=== PATIENT | female | born 1980 | race American Indian/Alaskan Native ===

== ENCOUNTER 2020-06-14 06:55 | Emergency (ER) | payer SELFPAY ==
[2020-06-14] MEDS ORDERED: HYOSCYAMINE SUBL 0.125 MG TAB SL ONE (07:45)
[2020-06-14] MEDS ORDERED: FAMOTIDINE 20 MG/2 ML INJ IV ONE (07:45)
[2020-06-14] MEDS ORDERED: ONDANSETRON 4 MG/2 ML INJ IV ONE (07:48)
[2020-06-14] MEDS ORDERED: SUCRALFATE 1 GM/10 ML ORAL LIQD PO ONE (07:49)
[2020-06-14] MEDS ORDERED: MORPHINE 4 MG/1 ML INJ IV ONE (07:50)
--- NOTE | 2020-06-14 07:51 | Emergency Department Report ---
ED Abdominal Pain HPI - General Chief Complaint: Abdominal Pain Stated Complaint: STOMACH PAIN/NAUSEA Source: patient Mode of arrival: Ambulatory Limitations: No Limitations - History of Present Illness Initial Comments: 40-year-old -[place] female presents to the emergency room complaining of epigastric pain with nausea vomiting that is worse this morning. Patient sta chay it is her reflux. She states her Protonix is no longer working. She is having nausea and vomiting. Take Zofran couple hours prior to arrival. She denies smoking marijuana. In review of patient's chart I see that she has had a hysterectomy gastric bypass and neck surgery. Medical history is reflux in her area. She does have a history of hypertension. Denies any vomiting up blood. Patient reports that she last saw Dr. Kenia Contreras from [facility] in March and was told that she has severe acid reflux and a hiatal hernia and informed her that surgery is probably her most likely resolution of this problem. Patient states she has been taking Carafate, Nexium without much relief. Patient states even drinking water makes her stomach hurt. MD Complaint: abdominal pain -: This morning Location: epigastric Radiation: none Migration to: no migration Severity scale (0 -10): 10 Quality: sharp, burning Consistency: constant Improves With: nothing Worsens With: eating Associated Symptoms: nausea, vomiting - Related Data Previous Rx's Medication Instructions Recorded Last Taken Type Dicyclomine [Bentyl] 10 mg PO QID #20 capsule 06/14/20 Unknown Rx Hyoscyamine Subl [Levsin Sl 0.125 0.125 mg SL Q6HR PRN #20 tab 06/14/20 Unknown Rx TAB] Nitrofurantoin [place]/M-Cryst 100 mg PO Q12HR 10 Days #20 capsule 06/14/20 Unknown Rx [Macrobid CAP] Ondansetron [Zofran Odt] 4 mg PO Q8HR PRN #12 tab.rapdis 06/14/20 Unknown Rx Sucralfate [Carafate] 1 gm PO ACHS #120 ml 06/14/20 Unknown Rx Allergies Allergy/AdvReac Type Severity Reaction Status Date / Time No Known Allergies Allergy Unverified 06/14/20 07:12 ED Review of Systems ROS: Stated complaint: STOMACH PAIN/NAUSEA Other details as noted in HPI Comment: All other systems reviewed and negative ED Past Medical Hx - Past Medical History Hx Hypertension: Yes Additional medical history: reflux/HERNIA - Surgical History Additional Surgical History: hyst/ gastric bypass/ neck - Social History Smoking Status: Never Smoker Substance Use Type: None - Medications Home Medications: Home Medications Medication Instructions Recorded Confirmed Last Taken Type Dicyclomine [Bentyl] 10 mg PO QID #20 capsule 06/14/20 Unknown Rx Hyoscyamine Subl [Levsin Sl 0.125 0.125 mg SL Q6HR PRN #20 tab 06/14/20 Unknown Rx TAB] Nitrofurantoin [place]/M-Cryst 100 mg PO Q12HR 10 Days #20 capsule 06/14/20 Unknown Rx [Macrobid CAP] Ondansetron [Zofran Odt] 4 mg PO Q8HR PRN #12 tab.rapdis 06/14/20 Unknown Rx Sucralfate [Carafate] 1 gm PO ACHS #120 ml 06/14/20 Unknown Rx ED Physical Exam - General Limitations: No Limitations General appearance: alert, in distress - Head Head exam: Present: atraumatic, normocephalic - Eye Eye exam: Present: normal appearance - ENT ENT exam: Present: normal exam, mucous membranes moist - Neck Neck exam: Present: normal inspection, full ROM - Respiratory Respiratory exam: Absent: accessory muscle use - Cardiovascular Cardiovascular Exam: Present: regular rate - GI/Abdominal GI/Abdominal exam: Present: soft, tenderness (Epigastric). Absent: distended - Back Exam Back exam: Present: normal inspection - Neurological Exam Neurological exam: Present: alert, oriented X3 - Psychiatric Psychiatric exam: Present: normal affect, normal mood - Skin Skin exam: Present: warm, dry, intact, normal color. Absent: rash ED Course Vital Signs 06/14/20 06/14/20 06/14/20 07:15 09:01 09:15 Temperature 97.8 F Pulse Rate 72 57 L 55 L Respiratory 20 13 10 L Rate Blood Pressure 137/92 122/62 119/70 O2 Sat by Pulse 100 100 88 Oximetry 06/14/20 09:31 Temperature Pulse Rate 54 L Respiratory 14 Rate Blood Pressure 122/62 O2 Sat by Pulse 100 Oximetry ED Medical Decision Making - Lab Data Result diagrams: 06/14/20 08:12 06/14/20 08:12 - Medical Decision Making 40-year-old -[place] female presents to the emergency room complaining of epigastric pain with nausea vomiting that is worse this morning. Patient states it is her reflux. She states her Protonix is no longer working. She is having nausea and vomiting. Take Zofran couple hours prior to arrival. She denies smoking marijuana. In review of patient's chart I see that she has had a hysterectomy gastric bypass and neck surgery. Medical history is reflux in her area. She does have a history of hypertension. Denies any vomiting up blood. Patient reports that she last saw Dr. Kenia Contreras from [place] [facility] in March and was told that she has severe acid reflux and a hiatal hernia and informed her that surgery is probably her most likely resolution of this problem. Patient states she has been taking Carafate, Nexium without much relief. Patient states even drinking water makes her stomach hurt. Patient states meds hurt a little bit but she still in a lot of pain. Tried g iving her Dilaudid and fluids. Patient's urinalysis came back for urinary tract infection. I will treat her accordingly with Macrobid. Patient can follow-up with her field identification specialist. I will discharge her on Levsin Bentyl she can continue with the Nexium and I will give her prescription for the Carafate. Critical care attestation.: If time is entered above; I have spent that time in minutes in the direct care of this critically ill patient, excluding procedure time. ED Disposition Clinical Impression: GERD (gastroesophageal reflux disease) Qualifiers: Esophagitis presence: esophagitis presence not specified Qualified Code(s): K21.9 - Gastro-esophageal reflux disease without esophagitis UTI (urinary tract infection) Qualifiers: Urinary tract infection type: site unspecified Hematuria presence: without hematuria Qualified Code(s): N39.0 - Urinary tract infection, site not specified Nausea & vomiting Qualifiers: Vomiting type: unspecified Vomiting Intractability: intractable Qualified Code(s): R11.2 - Nausea with vomiting, unspecified Disposition: DC-01 TO HOME OR SELFCARE Is pt being admited?: No Does the pt Need Aspirin: No Condition: Stable Instructions: Abdominal Pain (ED), Nausea and Vomiting, Adult, Heartburn, [id number], Urinary Tract Infection, Adult, [id number], Gastroesophageal Reflux Disease, Adult, [id number] Additional Instructions: Labs show that you have a urinary tract infection. I have placed you on Macrobid. You need to increase your water intake advance your diet as tammi erated. I have put you on GERD type medication. Is very important for you to follow-up with your field identification specialist. You can take Tylenol for pain management. Prescriptions: Dicyclomine [Bentyl] 10 mg PO QID #20 capsule Sucralfate [Carafate] 1 gm PO ACHS #120 ml Hyoscyamine Subl [Levsin Sl 0.125 TAB] 0.125 mg SL Q6HR PRN #20 tab PRN Reason: Dyspepsia Nitrofurantoin [place]/M-Cryst [Macrobid CAP] 100 mg PO Q12HR 10 Days #20 capsule Ondansetron [Zofran Odt] 4 mg PO Q8HR PRN #12 tab.rapdis PRN Reason: Nausea And Vomiting Referrals: NINA LAM MD [Primary Care Provider] - 3-5 Days [facility] [Provider Group] - 3-5 Days Forms: Work/School Release Form(ED)
[2020-06-14 08:20] LABS: Basophils % (Auto) 0.2 % (0.0-1.8); Eosinophils % (Auto) 0.2 % (0.0-4.3); Hematocrit 41.3 % (30.3-42.9); Hemoglobin 13.4 gm/dl (10.1-14.3); Lymphocytes # (Auto) 0.8 K/mm3 (1.2-5.4); Lymphocytes % (Auto) 7.7 % (13.4-35.0); Mean Corpuscular HGB Conc 32 % (30-34); Mean Corpuscular Volume 83 fl (79-97); Monocytes # (Auto) 0.8 K/mm3 (0.0-0.8); Monocytes % (Auto) 7.1 % (0.0-7.3); Platelet Count 192 K/mm3 (140-440); Red Blood Count 4.99 M/mm3 (3.65-5.03); Red Cell Distribution Width 14.7 % (13.2-15.2)
[2020-06-14 08:50] LABS: Alanine Aminotransferase TNR units/L (7-56); BUN/Creatinine Ratio TNR; Blood Urea Nitrogen TNR mg/dL (7-17); Calcium TNR mg/dL (8.4-10.2)
[2020-06-14 08:51] LABS: Albumin TNR g/dL (3.9-5); Hemolysis Index TNR
[2020-06-14] MEDS ORDERED: HYDROmorphone 1 MG/1 ML INJ IV ONE (09:21)
[2020-06-14] MEDS ORDERED: SODIUM CHLORIDE 0.9% 1000 ML 1,000 ML IV ONE (09:21)
[2020-06-14 09:36] LABS: Bilirubin,Urine NEG (Negative); Blood,Urine MOD (Negative); Color,Urine Yellow (Yellow); Mucus,Urine FEW /HPF; Protein,Urine <15 mg/dL mg/dL (Negative); Urobilinogen,Urine < 2.0 mg/dL (<2.0)
[2020-06-14 09:45] LABS: Alanine Aminotransferase 14 units/L (7-56); Blood Urea Nitrogen 15 mg/dL (7-17); Calcium 8.7 mg/dL (8.4-10.2); Hemolysis Index 27
[2020-06-14 09:49] LABS: BUN/Creatinine Ratio 21
[2020-06-14 10:41] VITALS: BP 136/71
== END 2020-06-14 10:41 | disposition home or self-care (01) ==
LOC: ED 06:55
DX: K21.9 Gastro-esophageal reflux disease without esophagitis (principal); N39.0 Urinary tract infection, site not specified; R11.2 Nausea with vomiting, unspecified; I10 Essential (primary) hypertension; Z79.899 Other long term (current) drug therapy; Z98.890 Other specified postprocedural states
CPT/HCPCS: 36415; 80053; 81001; 85025; 87086; 96361; 96374; 96375; 99283; J1170; J2270; J2405; J7030

== ENCOUNTER 2020-07-31 03:12 | Emergency (ER) | payer OTHER ==
--- NOTE | 2020-07-31 04:18 | XRay Report ---
RIGHT ANKLE 3 VIEWS INDICATION / CLINICAL INFORMATION: Right ankle pain and swelling. COMPARISON: None available. FINDINGS: BONES and JOINT(S): There is an acute mildly displaced oblique fracture through the distal third of t he fibular shaft. There is disruption of the ankle joint with widening of the medial clear space, whi ch measures 8 mm. SOFT TISSUES: Moderate generalized edema is present. ADDITIONAL FINDINGS: None. IMPRESSION: Acute right fibular fracture with disruption of the right ankle joint. Signer Name: Jim Maldonado MD Signed: 07/31/2020 4:14 AM Workstation Name: [id number]
[2020-07-31] MEDS ORDERED: MORPHINE 4 MG/1 ML INJ IM ONE (04:58)
[2020-07-31] MEDS ORDERED: KETOROLAC 30 MG/1 ML INJ IM ONE (05:37)
[2020-07-31] MEDS ORDERED: HYDROmorphone 1 MG/1 ML INJ IM ONE (05:37)
--- NOTE | 2020-07-31 05:41 | Emergency Department Report ---
ED Lower Extremity HPI - General Chief Complaint: Extremity Injury, Lower Stated Complaint: LT ANKLE PAIN Time Seen by Provider: 07/31/20 05:25 Source: patient Mode of arrival: Ambulatory Limitations: No Limitations - History of Present Illness Initial Comments: 32-year-old [place] female [facility] emerge department complaining of a trip and fall resulting in ankle pain. She was out to a club with her having a few too many drinks when she was walking after she states that she wound up in the grass with a swollen tender ankle which worse with palpation and ambulation. MD Complaint: ankle injury -: Gradual Injury: Ankle: Left Type of Injury: inversion Place: home Severity: moderate Worsens With: weight bearing, movement, palpation Associated Symptoms: swelling, unable to bear weight - Related Data Previous Rx's Medication Instructions Recorded Last Taken Type Dicyclomine [Bentyl] 10 mg PO QID #20 capsule 06/14/20 Unknown Rx Hyoscyamine Subl [Levsin Sl 0.125 0.125 mg SL Q6HR PRN #20 tab 06/14/20 Unknown Rx TAB] Nitrofurantoin [place]/M-Cryst 100 mg PO Q12HR 10 Days #20 capsule 06/14/20 Unknown Rx [Macrobid CAP] Ondansetron [Zofran Odt] 4 mg PO Q8HR PRN #12 tab.rapdis 06/14/20 Unknown Rx Sucralfate [Carafate] 1 gm PO ACHS #120 ml 06/14/20 Unknown Rx Oxycodone HCl/Acetaminophen 1 each PO Q6HR PRN #14 tablet 07/31/20 Unknown Rx [Percocet 10/325 mg] Allergies Allergy/AdvReac Type Severity Reaction Status Date / Time No Known Allergies Allergy Unverified 06/14/20 07:12 ED Review of Systems ROS: Stated complaint: LT ANKLE PAIN Other details as noted in HPI Comment: All other systems reviewed and negative ED Past Medical Hx - Past Medical History Previous Medical History?: Yes Hx Hypertension: Yes Additional medical history: reflux/HERNIA - Surgical History Past Surgical History?: Yes Additional Surgical History: hyst/ gastric bypass/ neck - Social History Smoking Status: Never Smoker Substance Use Type: Alcohol - Medications Home Medications: Home Medications Medication Instructions Recorded Confirmed Last Taken Type Dicyclomine [Bentyl] 10 mg PO QID #20 capsule 06/14/20 Unknown Rx Hyoscyamine Subl [Levsin Sl 0.125 0.125 mg SL Q6HR PRN #20 tab 06/14/20 Unknown Rx TAB] Nitrofurantoin [place]/M-Cryst 100 mg PO Q12HR 10 Days #20 capsule 06/14/20 Unknown Rx [Macrobid CAP] Ondansetron [Zofran Odt] 4 mg PO Q8HR PRN #12 tab.rapdis 06/14/20 Unknown Rx Sucralfate [Carafate] 1 gm PO ACHS #120 ml 06/14/20 Unknown Rx Oxycodone HCl/Acetaminophen 1 each PO Q6HR PRN #14 tablet 07/31/20 Unknown Rx [Percocet 10/325 mg] ED Physical Exam - General Limitations: No Limitations General appearance: alert, in no apparent distress - Head Head exam: Present: atraumatic, normocephalic - Eye Eye exam: Present: normal appearance, PERRL, EOMI Pupils: Present: normal accommodation - ENT ENT exam: Present: normal exam, normal orophraynx, mucous membranes moist - Neck Neck exam: Present: normal inspection - Respiratory Respiratory exam: Present: normal lung sounds bilaterally. Absent: respiratory distress - Cardiovascular Cardiovascular Exam: Present: regular rate, normal rhythm. Absent: systolic murmur, diastolic murmur, rubs, gallop - GI/Abdominal GI/Abdominal exam: Present: soft, normal bowel sounds - Extremities Exam Extremities exam: Present: normal inspection - Expanded Lower Extremity Exam Left Upper Leg exam: Present: normal inspection Knee exam: Present: normal inspection Ankle exam: Present: tenderness, swelling. Absent: full ROM, laceration, ecchymosis, crepidus, dislocation, erythema Neuro vascular tendon exam: Present: no vascular compromise. Absent: pulse deficit, abnormal cap refill - Back Exam Back exam: Present: normal inspection - Neurological Exam Neurological exam: Present: alert, oriented X3, CN II-XII intact, normal gait - Psychiatric Psychiatric exam: Present: normal affect, normal mood - Skin Skin exam: Present: warm, dry, intact, normal color. Absent: rash ED Course Vital Signs 07/31/20 05:04 Respiratory 18 Rate - Orthopedic Splinting/Casting Injury #1 Side: left Lower Extremity Injury Location: ankle Lower Extremity Immobilizer: stirrup splint Other Orthopedic Equipment: crutches Critical care attestation.: If time is entered above; I have spent that time in minutes in the direct care of this critically ill patient, excluding procedure time. ED Disposition Clinical Impression: Ankle fracture Disposition: TO HOME OR SELFCARE Is pt being admited?: No Does the pt Need Aspirin: No Condition: Stable Instructions: Ankle Fracture, Cast or Splint Care, Adult Prescriptions: Oxycodone HCl/Acetaminophen [Percocet 10/325 mg] 1 each PO Q6HR PRN #14 tablet PRN Reason: Pain Referrals: PRIMARY CARE, [Primary Care Provider] - 3-5 Days [facility] [Provider Group] - 3-5 Days
[2020-07-31 06:50] VITALS: BP 124/68
== END 2020-07-31 06:00 | disposition home or self-care (01) ==
LOC: ED 03:12
DX: S82.431A Displaced oblique fracture of shaft of right fibula, initial encounter for closed fracture (principal); I10 Essential (primary) hypertension; Z98.890 Other specified postprocedural states; Z79.899 Other long term (current) drug therapy; W01.0XXA Fall on same level from slipping, tripping and stumbling without subsequent striking against object, initial encounter; Y93.89 Activity, other specified; Y92.89 Other specified places as the place of occurrence of the external cause; Y99.8 Other external cause status
CPT/HCPCS: 29515; 73610; 96372; 99284; J1170; J1885; J2270